=== PATIENT | female | born 1990 | race Caucasian/White ===

== ENCOUNTER 2019-10-28 11:47 | Emergency (ER) | payer BC ==
[2019-10-28 13:24] VITALS: BP 131/84
--- NOTE | 2019-10-28 13:38 | UC ---
Hand/Wrist HPI - HPI Summary HPI Summary: 29yo female presenting with right wrist pain x6 weeks after she "felt a twinge" while using loppers to trim a angel. Wrist pain is in distal ulnar aspect of wrist and radiates into fifth metacarpal. Denies numbness and tingling. Denies every have bruising or swelling. Denies decreased ROM. Denies pain at rest. Pain worse with pressure applied to wrist exntension. Denies prior injury. - History Of Current Complaint Chief Complaint: UCUpperExtremity Stated Complaint: RT WRIST INJ Hx Obtained From: Patient Hx Last Menstrual Period: "last week" Pain Intensity: 2 Pain Scale Used: 0-10 Numeric - Allergies/Home Medications Allergies/Adverse Reactions: Allergies Allergy/AdvReac Type Severity Reaction Status Date / Time No Known Allergies Allergy Verified 10/28/19 13:20 Home Medications: Home Medications NK [No Home Medications Reported] 10/28/19 [History Confirmed 10/28/19] PMH/Surg Hx/FS Hx/Imm Hx Previously Healthy: Yes - Surgical History Surgical History: Yes Surgery Procedure, Year, and Place: Right Thumb Ligament Tear, 2013, [facility] - Family History Known Family History: Positive: Non-Contributory - Social History Alcohol Use: Occasionally Substance Use Type: None Smoking Status (MU): Never Smoked Tobacco Review of Systems All Other Systems Reviewed And Are Negative: No Constitutional: Positive: Negative Skin: Positive: Negative. Negative: Bruising Respiratory: Positive: Negative Cardiovascular: Positive: Negative Musculoskeletal: Positive: Arthralgia - right wrist. Negative: Decreased ROM, Edema Neurological/Mental Status: Positive: Negative. Negative: Paresthesia, Numbness Physical Exam - Summary Physical Exam Summary: Vital Signs Reviewed: Yes A+Ox3, no distress Eyes: Conjunctiva Clear ENT: Hearing grossly normal neck: supple Respiratory: Positive: No respiratory distress, No accessory muscle use Cardiovascular: skin color reflect adequate perfusion Musculoskeletal Exam: ARTIS x 4 without difficulty, +minimal TTP of ulnar aspect of right wrist, mild edema, ROM intact, increased pain with wrist extension, no erythema or ecchymosis, sensation grossly intact, cap refill <2 sec Neurological: Positive: Alert, ambulatory without difficulty Psychological: Positive: Normal Response To Family Skin: Positive: no rash, no ecchymosis Vital Signs: Initial Vital Signs Temp 98.2 F 10/28/19 13:18 Pulse 90 10/28/19 13:18 Resp 16 10/28/19 13:18 BP 131/84 10/28/19 13:18 Pulse Ox 100 10/28/19 13:18 Diagnostics - Radiology right wrist Radiology Interpretation Completed By: Radiologist Summary of Radiographic Findings: REPORT AND IMPRESSION: #. Normal articular alignment. Negative for ulnar variance. #. Preserved joint spaces without arthropathic change. #. Negative for fracture, radiographic findings of avascular necrosis, or focal osseous lesions. #. Incidental note of a surgical anchor at the ulnar base of the first proximal phalanx consistent with previous MCP ulnar collateral ligament repair. #. Mild soft tissue swelling along the ulnar aspect of the wrist. Hand/Wrist Course/Dx - Course Course Of Treatment: Discussed soft tissue swelling found on xray and likely tendonitis or wrist sprain. Instructed to rest, ice, elevate, and use the cock up splint for symptom relief. I provided patient with referral to ortho for further evaluation of wrist pain. Patient voiced understanding and agreed with treatment plan. - Differential Dx/Diagnosis Provider Diagnosis: Pain and swelling of right wrist Discharge ED - Sign-Out/Discharge Documenting (check all that apply): Patient Departure All imaging exams completed and their final reports reviewed: Yes - Discharge Plan Condition: Stable Disposition: HOME Patient Education Materials: Wrist Injury (ED) Referrals: Naila Desouza MD [Medical Doctor] - Additional Instructions: As discussed, your xrays did show soft tissue swelling but no other abnormalities. Rest, ice, elevate, and use the wrist splint to help alleviate pain symptoms. Use over the counter pain medications as directed for pain relief. Refrain from strenuous physical activity until pain has fully resolved. Follow up with the orthopedic referral listed below for further evaluation of wrist pain. - Billing Disposition and Condition Condition: STABLE Disposition: Home - Attestation Statements Provider Attestation: This patient was not seen by me. I was available for consult. Chart reviewed. FELIX
== END 2019-10-28 14:45 | disposition home or self-care (01) ==
LOC: UCCORT 11:47
DX: M25.531 Pain in right wrist (principal); M25.431 Effusion, right wrist; Z98.890 Other specified postprocedural states
CPT/HCPCS: 99212; G0463